=== PATIENT | male | born 1955 | race African-American/Black ===

== ENCOUNTER 2017-02-13 12:54 | Inpatient (IN) ==
[2017-02-13] MEDS ORDERED: SODIUM CHLORIDE 0.9% 500 ML IV STA ×2 (13:21→15:08)
[2017-02-13] MEDS ORDERED: CLINDAMYCIN INJ 600 MG in PREMIX 1 EACH IV STA (13:21)
[2017-02-13] MEDS ORDERED: CLINDAMYCIN INJ 50 ML IV ONE (13:48)
[2017-02-13 13:51] LABS: Basophils # 0.1 10*3/uL (0.0-0.2); Basophils % 0.3 % (0.0-0.8); Eosinophils % 0.2 % (0.00-10.9); Hematocrit 26.9 VOL% (42.0-52.0); Hemoglobin 9.2 GM/DL (14.0-18.0); Immature Granulocytes % 0.8 %; Immature Granulocytes Absolute 0.12 #; Lymphocytes # 2.1 10*3/uL (1.4-4.0); Mean Corpuscular HGB Conc 34.2 GM/DL (32-36); Mean Corpuscular Hemoglobin 26 PG (27-34); Mean Corpuscular Volume 74.7 FL (87-102); Mean Platelet Volume 9.9 FL (9.6-12.0); Monocytes # 1.2 10*3/uL (0.11-0.8); Monocytes % 7.4 % (1.7-12.7); Neutrophils # 12.5 10*3/uL (1.4-7.4); Neutrophils % 78.3 % (38.7-73.9); Platelet Count 495 T/CUMM (130-400); Red Cell Distribution Width 13.8 % (9.3-17.3); White Blood Count 15.9 T/CUMM (4-12)
[2017-02-13] MEDS ORDERED: ONDANSETRON 4 MG/2 ML VIAL ONE (14:19)
[2017-02-13] MEDS ORDERED: MORPHINE 2 MG/1 ML SYRINGE ONE (14:20)
[2017-02-13] MEDS ORDERED: MORPHINE 2 MG/1 ML SYRINGE IV STA (14:24)
[2017-02-13] MEDS ORDERED: ONDANSETRON 4 MG/2 ML VIAL IV STA (14:24)
[2017-02-13 14:37] LABS: Apearance,Urine CLOUDY (Clear); Bacteria,Urine Occasional /HPF (Few); Bilirubin,Urine Negative (Negative); Blood, Urine Moderate mg/dL (Negative); Glucose,Urine (UA) Negative (Negative); Ketones,Urine Negative (Negative); Mucus,Urine Few /LPF (Occasional); Nitrite,Urine Positive (Negative); Protein,Urine 100 MG/DL; RBC,Urine 70 /HPF (0-4); Squamous Epithelial Cell,Urine Occasional /HPF (0-10); Urine Color Amber (Yellow); Urine Specific Gravity 1.021 (1.001-1.035); WBC,Urine 68 /HPF (0-6)
[2017-02-13 14:57] LABS: Albumin 2.2 G/DL (3.4-5.0); Bilirubin,Total 0.6 MG/DL (0.2-1.0); Calcium 8.1 MG/DL (8.5-10.1); Osmolality,Calculated 256.9 MOS/KG (273-304); Potassium 3.7 MMOL/L (3.5-5.1); Total Protein 6.5 G/DL (6.4-8.3)
[2017-02-13] MEDS ORDERED: ONDANSETRON 4 MG/2 ML VIAL IV PRN (15:32)
[2017-02-13] MEDS ORDERED: ACETAMINOPHEN 325 MG TABLET PO PRN (15:32)
[2017-02-13] MEDS ORDERED: ZINC OXIDE PASTE 113 GM TUBE TOP PRN (15:37)
[2017-02-13] MEDS ORDERED: DICYCLOMINE 20 MG TABLET PO PRN (15:37)
[2017-02-13] MEDS: LEVOFLOXACIN INJ 750 MG in PREMIX 1 EACH IV SCH (16:54)
[2017-02-13] MEDS: ENOXAPARIN 40 MG/0.4 ML SYRINGE SUBCUT SCH (16:54)
[2017-02-13] MEDS: SODIUM CHLORIDE 0.9% 1,000 ML IV SCH (16:54)
[2017-02-13] MEDS: VANCOMYCIN INJ 750 MG in SODIUM CHLORIDE 0.9% 250 ML IV SCH (18:31)
[2017-02-13] MEDS: ATORVASTATIN 20 MG TABLET PO SCH (22:52)
[2017-02-13] MEDS: DOCUSATE SODIUM 100 MG CAPSULE PO SCH (22:52)
[2017-02-13] MEDS: GABAPENTIN 300 MG CAPSULE PO SCH (22:52)
[2017-02-13] MEDS: BACLOFEN 10 MG TABLET PO SCH (22:52)
[2017-02-14] MEDS: VANCOMYCIN INJ 750 MG in SODIUM CHLORIDE 0.9% 250 ML IV SCH ×2 (01:35→15:02)
[2017-02-14] MEDS: SODIUM CHLORIDE 0.9% 1,000 ML IV SCH ×3 (05:16→17:57)
[2017-02-14 06:48] LABS: Basophils # 0.1 10*3/uL (0.0-0.2); Basophils % 0.4 % (0.0-0.8); Eosinophils # 0.2 10*3/uL (0.0-0.87); Eosinophils % 1.4 % (0.00-10.9); Hematocrit 23.7 VOL% (42.0-52.0); Immature Granulocytes % 0.5 %; Immature Granulocytes Absolute 0.07 #; Lymphocytes # 2.5 10*3/uL (1.4-4.0); Lymphocytes % 17.8 % (21.2-54.2); Mean Corpuscular HGB Conc 33.8 GM/DL (32-36); Mean Corpuscular Hemoglobin 25 PG (27-34); Mean Corpuscular Volume 75.2 FL (87-102); Mean Platelet Volume 9.4 FL (9.6-12.0); Monocytes # 1.4 10*3/uL (0.11-0.8); Monocytes % 9.9 % (1.7-12.7); Neutrophils # 9.7 10*3/uL (1.4-7.4); Platelet Count 419 T/CUMM (130-400); Red Blood Count 3.15 MC/CUMM (3.8-5.5); Red Cell Distribution Width 13.7 % (9.3-17.3); White Blood Count 13.8 T/CUMM (4-12)
[2017-02-14 06:55] LABS: Bilirubin,Total 0.6 MG/DL (0.2-1.0); Calcium 7.9 MG/DL (8.5-10.1); Osmolality,Calculated 265.1 MOS/KG (273-304); Potassium 3.3 MMOL/L (3.5-5.1); Total Protein 5.9 G/DL (6.4-8.3)
[2017-02-14] MEDS: LISINOPRIL 20 MG TABLET PO SCH (09:36)
[2017-02-14] MEDS: DOCUSATE SODIUM 100 MG CAPSULE PO SCH ×2 (09:37→20:12)
[2017-02-14] MEDS: GABAPENTIN 300 MG CAPSULE PO SCH ×2 (09:37→20:13)
[2017-02-14] MEDS: BACLOFEN 10 MG TABLET PO SCH ×3 (09:37→20:13)
[2017-02-14] MEDS: MULTIVITAMIN (CENTRUM) TABLET PO SCH (09:37)
[2017-02-14] MEDS: CLOPIDOGREL 75 MG TABLET PO SCH (09:37)
[2017-02-14] MEDS: ASPIRIN EC 81 MG TABLET PO SCH (09:37)
[2017-02-14] MEDS: COLLAGENASE OINT 30 GM TUBE TOP SCH (09:38)
[2017-02-14] MEDS: SODIUM HYPOCHLORITE 0.25% IRRIG 473 ML BOTTLE TOP SCH (09:38)
[2017-02-14] MEDS: traMADol 50 MG TABLET PO PRN (09:39)
[2017-02-14] MEDS ORDERED: POTASSIUM CHLORIDE 20 MEQ TABLET PO ONE (11:21)
[2017-02-14] MEDS: ENOXAPARIN 40 MG/0.4 ML SYRINGE SUBCUT SCH (16:26)
[2017-02-14] MEDS: LEVOFLOXACIN INJ 750 MG in PREMIX 1 EACH IV SCH (17:58)
[2017-02-14] MEDS: ATORVASTATIN 20 MG TABLET PO SCH (20:13)
[2017-02-15] MEDS: traMADol 50 MG TABLET PO PRN ×3 (00:14→21:27)
[2017-02-15] MEDS: VANCOMYCIN INJ 750 MG in SODIUM CHLORIDE 0.9% 250 ML IV SCH (01:40)
[2017-02-15] MEDS: SODIUM CHLORIDE 0.9% 1,000 ML IV SCH ×2 (04:46→09:09)
[2017-02-15 07:05] LABS: Phosphorous 2.6 MG/DL (2.5-4.9); Prealbumin < 3.0 MG/DL (20-40)
[2017-02-15] MEDS: DOCUSATE SODIUM 100 MG CAPSULE PO SCH ×2 (09:06→21:28)
[2017-02-15] MEDS: GABAPENTIN 300 MG CAPSULE PO SCH ×2 (09:06→21:28)
[2017-02-15] MEDS: MULTIVITAMIN (CENTRUM) TABLET PO SCH (09:06)
[2017-02-15] MEDS: BACLOFEN 10 MG TABLET PO SCH ×3 (09:06→21:28)
[2017-02-15] MEDS: LISINOPRIL 20 MG TABLET PO SCH (09:06)
[2017-02-15] MEDS: ASPIRIN EC 81 MG TABLET PO SCH (09:06)
[2017-02-15] MEDS: CLOPIDOGREL 75 MG TABLET PO SCH (09:07)
[2017-02-15] MEDS: SODIUM HYPOCHLORITE 0.25% IRRIG 473 ML BOTTLE TOP SCH (09:08)
[2017-02-15] MEDS: COLLAGENASE OINT 30 GM TUBE TOP SCH (09:08)
[2017-02-15] MEDS ORDERED: POTASSIUM CHLORIDE 20 MEQ TABLET PO ONE (13:51)
[2017-02-15] MEDS ORDERED: VANCOMYCIN INJ 1,000 MG in SODIUM CHLORIDE 0.9% 250 ML IV ONE (14:00)
[2017-02-15] MEDS ORDERED: VANCOMYCIN INJ 750 MG in SODIUM CHLORIDE 0.9% 250 ML IV SCH (14:00)
[2017-02-15] MEDS: ENOXAPARIN 40 MG/0.4 ML SYRINGE SUBCUT SCH (17:23)
[2017-02-15] MEDS: LEVOFLOXACIN INJ 750 MG in PREMIX 1 EACH IV SCH (17:23)
[2017-02-15] MEDS: PIPERACILLIN/TAZOBACTAM 3,375 MG in SODIUM CHLORIDE 0.9% 100 ML IV SCH (18:55)
[2017-02-16] MEDS: PIPERACILLIN/TAZOBACTAM 3,375 MG in SODIUM CHLORIDE 0.9% 100 ML IV SCH ×3 (01:55→23:59)
[2017-02-16] MEDS ORDERED: VANCOMYCIN INJ 750 MG in SODIUM CHLORIDE 0.9% 250 ML IV SCH (02:00)
[2017-02-16 04:45] LABS: Calcium 8.2 MG/DL (8.5-10.1); Osmolality,Calculated 262.5 MOS/KG (273-304); Potassium 4.7 MMOL/L (3.5-5.1)
[2017-02-16] MEDS: DOCUSATE SODIUM 100 MG CAPSULE PO SCH ×2 (10:05→20:36)
[2017-02-16] MEDS: GABAPENTIN 300 MG CAPSULE PO SCH ×2 (10:05→20:36)
[2017-02-16] MEDS: LISINOPRIL 20 MG TABLET PO SCH (10:06)
[2017-02-16] MEDS: MULTIVITAMIN (CENTRUM) TABLET PO SCH (10:06)
[2017-02-16] MEDS: ASPIRIN EC 81 MG TABLET PO SCH (10:06)
[2017-02-16] MEDS: BACLOFEN 10 MG TABLET PO SCH ×3 (10:06→20:36)
[2017-02-16] MEDS: CLOPIDOGREL 75 MG TABLET PO SCH (10:06)
[2017-02-16] MEDS: SODIUM HYPOCHLORITE 0.25% IRRIG 473 ML BOTTLE TOP SCH (15:30)
[2017-02-16] MEDS: COLLAGENASE OINT 30 GM TUBE TOP SCH (15:30)
[2017-02-16] MEDS: ENOXAPARIN 40 MG/0.4 ML SYRINGE SUBCUT SCH (17:16)
[2017-02-16] MEDS: LEVOFLOXACIN INJ 750 MG in PREMIX 1 EACH IV SCH (17:16)
[2017-02-17] MEDS: traMADol 50 MG TABLET PO PRN ×2 (00:39→21:09)
[2017-02-17] MEDS: PIPERACILLIN/TAZOBACTAM 3,375 MG in SODIUM CHLORIDE 0.9% 100 ML IV SCH ×3 (06:06→23:22)
[2017-02-17] MEDS: DOCUSATE SODIUM 100 MG CAPSULE PO SCH ×2 (09:43→21:10)
[2017-02-17] MEDS: GABAPENTIN 300 MG CAPSULE PO SCH ×2 (09:43→21:10)
[2017-02-17] MEDS: MULTIVITAMIN (CENTRUM) TABLET PO SCH (09:43)
[2017-02-17] MEDS: SODIUM HYPOCHLORITE 0.25% IRRIG 473 ML BOTTLE TOP SCH (09:43)
[2017-02-17] MEDS: BACLOFEN 10 MG TABLET PO SCH ×3 (09:43→21:10)
[2017-02-17] MEDS: CLOPIDOGREL 75 MG TABLET PO SCH (09:43)
[2017-02-17] MEDS: ASPIRIN EC 81 MG TABLET PO SCH (09:43)
[2017-02-17] MEDS: LISINOPRIL 20 MG TABLET PO SCH (09:44)
[2017-02-17] MEDS: COLLAGENASE OINT 30 GM TUBE TOP SCH (09:44)
[2017-02-17] MEDS: ENOXAPARIN 40 MG/0.4 ML SYRINGE SUBCUT SCH (16:46)
[2017-02-17 18:27] LABS: Apearance,Urine CLOUDY (Clear); Bilirubin,Urine Negative (Negative); Blood, Urine Negative (Negative); Calcium Oxalate Crystals,Urine Few /HPF (Few); Glucose,Urine (UA) Negative (Negative); Ketones,Urine Negative (Negative); Nitrite,Urine Negative (Negative); Protein,Urine Negative; RBC,Urine 17 /HPF (0-4); Squamous Epithelial Cell,Urine Occasional /HPF (0-10); Urine Color Yellow (Yellow); Urine Specific Gravity 1.017 (1.001-1.035); Urine Urobilinogen < 2.0 EU/DL (0.2-1.0); WBC,Urine 23 /HPF (0-6)
[2017-02-17] MEDS: LEVOFLOXACIN INJ 750 MG in PREMIX 1 EACH IV SCH (18:50)
[2017-02-18 03:07] LABS: Basophils % 0.3 % (0.0-0.8); Hematocrit 25.1 VOL% (42.0-52.0); Hemoglobin 8.3 GM/DL (14.0-18.0); Immature Granulocytes % 0.7 %; Immature Granulocytes Absolute 0.09 #; Lymphocytes # 3.2 10*3/uL (1.4-4.0); Lymphocytes % 26.5 % (21.2-54.2); Mean Corpuscular HGB Conc 33.1 GM/DL (32-36); Mean Corpuscular Hemoglobin 26 PG (27-34); Mean Platelet Volume 9.6 FL (9.6-12.0); Monocytes # 1.4 10*3/uL (0.11-0.8); Monocytes % 11.4 % (1.7-12.7); Neutrophils # 6.5 10*3/uL (1.4-7.4); Neutrophils % 53.1 % (38.7-73.9); Platelet Count 458 T/CUMM (130-400); Red Blood Count 3.26 MC/CUMM (3.8-5.5); Red Cell Distribution Width 14.2 % (9.3-17.3); White Blood Count 12.2 T/CUMM (4-12)
[2017-02-18 05:25] LABS: Hypochromasia 1+; Microcytosis 1+; Ovalocytes Slight
[2017-02-18 05:26] LABS: Platelet Estimate Increased
[2017-02-18] MEDS: PIPERACILLIN/TAZOBACTAM 3,375 MG in SODIUM CHLORIDE 0.9% 100 ML IV SCH ×3 (06:07→22:53)
[2017-02-18] MEDS: DOCUSATE SODIUM 100 MG CAPSULE PO SCH ×2 (09:42→20:24)
[2017-02-18] MEDS: CLOPIDOGREL 75 MG TABLET PO SCH (09:42)
[2017-02-18] MEDS: ASPIRIN EC 81 MG TABLET PO SCH (09:42)
[2017-02-18] MEDS: GABAPENTIN 300 MG CAPSULE PO SCH ×2 (09:42→20:24)
[2017-02-18] MEDS: BACLOFEN 10 MG TABLET PO SCH ×3 (09:42→20:24)
[2017-02-18] MEDS: LISINOPRIL 20 MG TABLET PO SCH (09:42)
[2017-02-18] MEDS: SODIUM HYPOCHLORITE 0.25% IRRIG 473 ML BOTTLE TOP SCH (09:42)
[2017-02-18] MEDS: MULTIVITAMIN (CENTRUM) TABLET PO SCH (09:42)
[2017-02-18] MEDS: COLLAGENASE OINT 30 GM TUBE TOP SCH (09:43)
[2017-02-18] MEDS: ENOXAPARIN 40 MG/0.4 ML SYRINGE SUBCUT SCH (16:06)
[2017-02-18] MEDS: LEVOFLOXACIN INJ 750 MG in PREMIX 1 EACH IV SCH (16:06)
[2017-02-18] MEDS: traMADol 50 MG TABLET PO PRN (20:23)
[2017-02-19 05:46] LABS: Calcium 8.4 MG/DL (8.5-10.1); Magnesium 1.9 MG/DL (1.8-2.4); Osmolality,Calculated 258.8 MOS/KG (273-304); Potassium 4.5 MMOL/L (3.5-5.1)
[2017-02-19 05:59] LABS: Phosphorous 3.6 MG/DL (2.5-4.9); Prealbumin 6.6 MG/DL (20-40)
[2017-02-19] MEDS: PIPERACILLIN/TAZOBACTAM 3,375 MG in SODIUM CHLORIDE 0.9% 100 ML IV SCH ×2 (05:59→14:45)
[2017-02-19] MEDS: CLOPIDOGREL 75 MG TABLET PO SCH (08:33)
[2017-02-19] MEDS: ASPIRIN EC 81 MG TABLET PO SCH (08:33)
[2017-02-19] MEDS: BACLOFEN 10 MG TABLET PO SCH ×3 (08:33→22:13)
[2017-02-19] MEDS: LISINOPRIL 20 MG TABLET PO SCH (08:33)
[2017-02-19] MEDS: DOCUSATE SODIUM 100 MG CAPSULE PO SCH ×2 (08:33→22:13)
[2017-02-19] MEDS: traMADol 50 MG TABLET PO PRN (08:33)
[2017-02-19] MEDS: GABAPENTIN 300 MG CAPSULE PO SCH ×2 (08:34→22:13)
[2017-02-19] MEDS: MULTIVITAMIN (CENTRUM) TABLET PO SCH (08:34)
[2017-02-19] MEDS: SODIUM HYPOCHLORITE 0.25% IRRIG 473 ML BOTTLE TOP SCH (08:34)
[2017-02-19] MEDS: COLLAGENASE OINT 30 GM TUBE TOP SCH (08:34)
[2017-02-19] MEDS ORDERED: SKIN HEALING OINT (AQUAPHOR) 50 GM TUBE TOP PRN (11:38)
[2017-02-19] MEDS: ENOXAPARIN 40 MG/0.4 ML SYRINGE SUBCUT SCH (17:04)
[2017-02-19] MEDS: LEVOFLOXACIN INJ 750 MG in PREMIX 1 EACH IV SCH (18:48)
[2017-02-20] MEDS: DOCUSATE SODIUM 100 MG CAPSULE PO SCH ×2 (09:05→20:12)
[2017-02-20] MEDS: LISINOPRIL 20 MG TABLET PO SCH (09:05)
[2017-02-20] MEDS: SODIUM HYPOCHLORITE 0.25% IRRIG 473 ML BOTTLE TOP SCH (09:05)
[2017-02-20] MEDS: MULTIVITAMIN (CENTRUM) TABLET PO SCH (09:05)
[2017-02-20] MEDS: CLOPIDOGREL 75 MG TABLET PO SCH (09:05)
[2017-02-20] MEDS: ASPIRIN EC 81 MG TABLET PO SCH (09:05)
[2017-02-20] MEDS: BACLOFEN 10 MG TABLET PO SCH ×3 (09:05→20:09)
[2017-02-20] MEDS: GABAPENTIN 300 MG CAPSULE PO SCH ×2 (09:05→20:09)
[2017-02-20] MEDS: COLLAGENASE OINT 30 GM TUBE TOP SCH (09:06)
[2017-02-20] MEDS: LEVOFLOXACIN INJ 750 MG in PREMIX 1 EACH IV SCH (17:21)
[2017-02-20] MEDS: ENOXAPARIN 40 MG/0.4 ML SYRINGE SUBCUT SCH (17:22)
[2017-02-20] MEDS: traMADol 50 MG TABLET PO PRN (20:12)
[2017-02-21] MEDS: GABAPENTIN 300 MG CAPSULE PO SCH ×2 (10:54→21:37)
[2017-02-21] MEDS: DOCUSATE SODIUM 100 MG CAPSULE PO SCH ×2 (10:55→21:37)
[2017-02-21] MEDS: CLOPIDOGREL 75 MG TABLET PO SCH (10:55)
[2017-02-21] MEDS: ASPIRIN EC 81 MG TABLET PO SCH (10:56)
[2017-02-21] MEDS: MULTIVITAMIN (CENTRUM) TABLET PO SCH (10:56)
[2017-02-21] MEDS: BACLOFEN 10 MG TABLET PO SCH ×3 (10:56→21:37)
[2017-02-21] MEDS: LISINOPRIL 20 MG TABLET PO SCH (11:03)
[2017-02-21] MEDS: ENOXAPARIN 40 MG/0.4 ML SYRINGE SUBCUT SCH (16:35)
[2017-02-21] MEDS: LEVOFLOXACIN INJ 750 MG in PREMIX 1 EACH IV SCH (16:41)
[2017-02-22 05:30] LABS: Basophils # 0.1 10*3/uL (0.0-0.2); Basophils % 0.7 % (0.0-0.8); Eosinophils # 0.4 10*3/uL (0.0-0.87); Eosinophils % 5.4 % (0.00-10.9); Hematocrit 26.9 VOL% (42.0-52.0); Immature Granulocytes % 0.8 %; Immature Granulocytes Absolute 0.06 #; Lymphocytes # 2.3 10*3/uL (1.4-4.0); Lymphocytes % 30.6 % (21.2-54.2); Mean Corpuscular HGB Conc 33.5 GM/DL (32-36); Mean Corpuscular Hemoglobin 26 PG (27-34); Mean Corpuscular Volume 76.2 FL (87-102); Mean Platelet Volume 9.3 FL (9.6-12.0); Monocytes # 0.7 10*3/uL (0.11-0.8); Monocytes % 9.3 % (1.7-12.7); Neutrophils # 3.9 10*3/uL (1.4-7.4); Neutrophils % 53.2 % (38.7-73.9); Platelet Count 503 T/CUMM (130-400); Red Blood Count 3.53 MC/CUMM (3.8-5.5); Red Cell Distribution Width 14.9 % (9.3-17.3); White Blood Count 7.4 T/CUMM (4-12)
[2017-02-22 05:58] LABS: Calcium 8.9 MG/DL (8.5-10.1); Osmolality,Calculated 256.1 MOS/KG (273-304); Potassium 4.8 MMOL/L (3.5-5.1)
[2017-02-22 05:59] LABS: Magnesium 2.2 MG/DL (1.8-2.4); Phosphorous 3.2 MG/DL (2.5-4.9)
[2017-02-22] MEDS: traMADol 50 MG TABLET PO PRN ×2 (10:03→22:58)
[2017-02-22] MEDS: GABAPENTIN 300 MG CAPSULE PO SCH ×2 (10:03→21:57)
[2017-02-22] MEDS: MULTIVITAMIN (CENTRUM) TABLET PO SCH (10:04)
[2017-02-22] MEDS: DOCUSATE SODIUM 100 MG CAPSULE PO SCH ×2 (10:04→21:56)
[2017-02-22] MEDS: BACLOFEN 10 MG TABLET PO SCH ×3 (10:04→21:57)
[2017-02-22] MEDS: ASPIRIN EC 81 MG TABLET PO SCH (10:05)
[2017-02-22] MEDS: LISINOPRIL 20 MG TABLET PO SCH (10:05)
[2017-02-22] MEDS: CLOPIDOGREL 75 MG TABLET PO SCH (10:05)
[2017-02-22] MEDS: SODIUM HYPOCHLORITE 0.25% IRRIG 473 ML BOTTLE TOP SCH ×2 (10:11→10:12)
[2017-02-22] MEDS: COLLAGENASE OINT 30 GM TUBE TOP SCH ×2 (10:11→10:12)
[2017-02-22] MEDS: ENOXAPARIN 40 MG/0.4 ML SYRINGE SUBCUT SCH (19:13)
[2017-02-23] MEDS ORDERED: LEVOFLOXACIN 750 MG TABLET PO SCH (09:00)
[2017-02-23] MEDS: ASPIRIN EC 81 MG TABLET PO SCH (09:18)
[2017-02-23] MEDS: BACLOFEN 10 MG TABLET PO SCH (09:18)
[2017-02-23] MEDS: MULTIVITAMIN (CENTRUM) TABLET PO SCH (09:18)
[2017-02-23] MEDS: LISINOPRIL 20 MG TABLET PO SCH (09:18)
[2017-02-23] MEDS: GABAPENTIN 300 MG CAPSULE PO SCH (09:18)
[2017-02-23] MEDS: DOCUSATE SODIUM 100 MG CAPSULE PO SCH (09:19)
[2017-02-23] MEDS: CLOPIDOGREL 75 MG TABLET PO SCH (09:20)
[2017-02-23] MEDS: SODIUM HYPOCHLORITE 0.25% IRRIG 473 ML BOTTLE TOP SCH (10:15)
[2017-02-23] MEDS: COLLAGENASE OINT 30 GM TUBE TOP SCH (10:15)
[2017-02-23 11:01] VITALS: BP 89/67
== END 2017-02-23 13:40 | disposition swing bed (61) | DRG 720 ==
LOC: EDUNIT# → N.ED 12:54 → N.EDINP 15:07 → SUATTDRO 15:07 → N.EDINP 16:22 → N.3E 16:31
PROVIDERS: ADMIT Internal Medicine; ATTEND Family Medicine